=== PATIENT | male | born 1955 | race Caucasian/White ===

== ENCOUNTER → 2018-04-28 | Outpatient (CLI) | payer BC ==
[~2018-04-28] MED LIST: CEPHALEXIN500 M1 PO; LORTAB 5/500 501 TAB PO; NO HOME MEDICATIONS; PENTASA PO; SEPTRA DS 800 M1 TAB PO
== END ==
LOC: COL.VAS 09:19
DX: M71.21 Synovial cyst of popliteal space [Baker], right knee (principal)